=== PATIENT | female | born 1995 | race Caucasian/White ===

== ENCOUNTER 2024-02-05 13:41 | Observation (INO) | payer OTHER ==
[2024-02-05] MEDS ORDERED: LORazepam 2 MG/ML INJ IV PRN (14:16)
[2024-02-05] MEDS: ONDANSETRON 4 MG/2 ML VIAL IVP STA (15:07)
[2024-02-05] MEDS: LORazepam 2 MG/ML INJ IV STA (15:07)
[2024-02-05] MEDS: PANTOPRAZOLE 40 MG/10 ML VIAL IVP STA (15:07)
[2024-02-05] MEDS: SODIUM CHLORIDE 0.9% 1,000 ML IV STA (15:07)
[2024-02-05 15:41] LABS: Appearance,Urine Clear (Clear); Bilirubin,Urine Negative (Negative); Blood,Urine Negative (Negative); Color,Urine Light Yellow; Glucose,Urine (UA) Negative (Negative); Ketones,Urine Negative (Negative); Leukocyte Esterase,Urine Negative (Negative); Nitrite,Urine Negative (Negative); PH, Urine 6.5 (5.0-8.0); Protein,Urine Negative (Negative); Specific Gravity,Urine 1.007 (1.001-1.035); Urobilinogen,Urine <2.0 mg/dL (<2.0)
[2024-02-05 15:49] LABS: Basophils % (A) 1 %; Eosinophils % (A) 1 %; HCT 47.9 % (34.0-46.0); HGB 16.4 gm/dL (11.4-16.0); Lymphocytes # (A) 0.8 k/uL (1.0-4.8); Lymphocytes % (A) 33 %; MCH 30.4 pg (25.0-35.0); MCHC 34.2 g/dL (31.0-37.0); MCV 88.9 fL (80.0-100.0); Mean Platelet Volume 9.9; Monocytes # (A) 0.4 k/uL (0-1.0); Monocytes % (A) 16 %; Neutrophils # (A) 1.1 k/uL (1.3-7.7); Neutrophils % (A) 46 %; Platelet Count 110 k/uL (150-450); RBC 5.39 m/uL (3.80-5.40); RDW 13.7 % (11.5-15.5); WBC 2.4 k/uL (3.8-10.6)
[2024-02-05 15:50] LABS: Partial Thromboplastin Time 27.5 sec (22.0-30.0); Prothrombin Time 10.6 sec (10.0-12.5)
[2024-02-05] MEDS: guaiFENesin 600 MG TABLET.ER PO STA (16:01)
[2024-02-05] MEDS: THIAMINE 100 MG/ML 2 ML VIAL IM STA (16:01)
[2024-02-05 16:05] LABS: ALT 154 U/L (4-34); AST 207 U/L (14-36); African American GFR (CKD) >90 (>60 ml/min/1.73 sqM); Alcohol <10 mg/dL; Alkaline Phosphatase 93 U/L (38-126); Amylase 60 U/L (30-110); Anion Gap 9 mmol/L; Blood Urea Nitrogen 3 mg/dL (7-17); Calcium 8.8 mg/dL (8.4-10.2); Carbon Dioxide 24 mmol/L (22-30); Chloride 100 mmol/L (98-107); Glucose 88 mg/dL (74-99); Lipase 128 U/L (23-300); Non-African American GFR(CKD) >90 (>60 ml/min/1.73 sqM); Potassium 3.3 mmol/L (3.5-5.1); Sodium 133 mmol/L (137-145); Total Bilirubin 0.4 mg/dL (0.2-1.3); Total Protein 6.8 g/dL (6.3-8.2)
--- NOTE | 2024-02-05 16:45 | XR ---
EXAMINATION TYPE: XR chest 2V DATE OF EXAM: 02/05/2024 4:34 PM CLINICAL INDICATION:Female, 28 years old with history of abdominal pain; [facility] COMPARISON: None TECHNIQUE: XR chest 2V Frontal and lateral views of the chest. FINDINGS: Lungs/Pleura: There is no evidence of pleural effusion, focal consolidation, or pneumothorax. Pulmonary vascularity: Unremarkable. Heart/mediastinum: Cardiomediastinal silhouette is unremarkable. Musculoskeletal: No acute osseous pathology. Other findings: None IMPRESSION: No acute cardiopulmonary disease/process.
[2024-02-05] MEDS ORDERED: NALOXONE 0.4 MG/ML 1 ML VIAL IV PRN (17:49)
[2024-02-05] MEDS ORDERED: KETOROLAC 15 MG/ML 1 ML VIAL IVP PRN (17:49)
[2024-02-05] MEDS ORDERED: ACETAMINOPHEN TAB 325 MG TAB PO PRN (17:49)
--- NOTE | 2024-02-05 17:52 | ED ---
General Adult HPI - General Chief complaint: Alcohol Stated complaint: detox Time Seen by Provider: 02/05/24 14:10 Source: patient, RN notes reviewed, old records reviewed Mode of arrival: ambulatory Limitations: no limitations - History of Present Illness Initial comments: Patient is a 28-year-old female who presents emergency department after being se nt from [facility] for alcohol withdrawals. Typically drinks 2 pints a day. Stop drinking yesterday. Last known drink was at 5 PM on 02/04/2024. Endorses mild alcohol withdrawal symptoms as well as upper respiratory symptoms of cough, fevers, congestion. Also endorses some mild nausea and a slight headache. Patient states she also has a remote history of seizure disorder but does not take medications for it. [facility] is asking that she be evaluated for this as well. Presents for admission for detox. [facility] will not admit her for detox. - Related Data Home Medications Medication Instructions Recorded Confirmed No Known Home Medications 02/05/24 02/05/24 Allergies Allergy/AdvReac Type Severity Reaction Status Date / Time No Known Allergies Allergy Verified 02/05/24 15:15 Review of Systems ROS Statement: Those systems with pertinent positive or pertinent negative responses have been documented in the HPI. Review of Systems: CONST: Denies fever EYES: Denies blurry vision ENT: Endorses nasal congestion C/V: Denies Chest pain RESP: Denies shortness of breath GI: Denies abdominal pain : Denies dysuria SKIN: Denies rash. MSK: Denies joint pain. NEURO: Endorses headache. ROS Other: All systems not noted in ROS Statement are negative. Past Medical History Past Medical History: Seizure Disorder Past Surgical History: No Surgical Hx Reported Past Alcohol Use History: Abuse Past Drug Use History: Cocaine, Heroin General Exam - General Exam Comments Initial Comments: General: Appears anxious. HEAD: Normal with no signs of head trauma. EYES: PERRLA, EOMI, conjunctiva normal, no discharge. ENT: Hearing grossly intact, normal oropharynx. RESPIRATORY: Clear breath sounds bilaterally. No wheezes, rales, or rhonchi. No hypoxia. No increased work of breathing. C/V: Regular rate and rhythm. S1 and S2 auscultated, no edema, peripheral pulses 2+ and intact throughout ABD: Abd is soft, nontender, nondistended EXT: Normal range of motion, no obvious deformity SKIN: No rashes or lesions observed on exposed skin. NEURO: Alert and oriented x 4. No focal deficits. Mild tremors. Limitations: no limitations Course Vital Signs 02/05/24 02/05/24 02/05/24 13:43 16:07 18:47 Temperature 97.4 F L Pulse Rate 112 H 98 81 Respiratory 20 18 16 Rate Blood Pressure 136/99 117/78 115/80 O2 Sat by Pulse 96 98 98 Oximetry Medical Decision Making - Medical Decision Making Was pt. sent in by a medical professional or institution (, PA, PLC ENGINEER, urgent care, hospital, or correction...) When possible be specific @ -Sent from [facility] for detox. Did not check in as a patient there but was sent here after trying to check in. Did you speak to anyone other than the patient for history (EMS, parent, family, police, friend...)? What history was obtained from this source @ -No Did you review nursing and triage notes (agree or disagree)? Why? @ -I reviewed and agree with nursing and triage notes Were old charts reviewed (outside hosp., previous admission, EMS record, old EKG, old radiological studies, urgent care reports/EKG's, correction records)? Report findings @ -No old charts were reviewed Differential Diagnosis (chest pain, altered mental status, abdominal pain women, abdominal pain men, vaginal bleeding, weakness, fever, dyspnea, syncope, headache, dizziness, GI bleed, back pain, seizure, CVA, palpatations, mental health, musculoskeletal)? @ -Alcohol withdrawals, dehydration, pneumonia, COVID, influenza. This list is not all inclusive. EKG interpreted by me (3pts min.). @ -As above X-rays interpreted by me (1pt min.). @ -Chest x-ray reveals no obvious acute cardiopulmonary process. CT interpreted by me (1pt min.). @ -None done U/S interpreted by me (1pt. min.). @ -None done What testing was considered but not performed or refused? (CT, X-rays, U/S, labs)? Why? @ -None What meds were considered but not given or refused? Why? @ -None Did you discuss the management of the patient with other professionals (professionals i.e. , MARCELA, PLC ENGINEER, lab, RT, psych nurse, rn social services, windows phone developer, teacher, founder chairman and chief creative officer, egg caser)? Give summary @ - I spoke with the admitting team, HERIBERTO Freitas of [facility] who accepted the admission. Patient admitted on CIWA protocol. Was smoking cessation discussed for >3mins.? @ -No Was critical care preformed (if so, how long)? @ -No Were there social determinants of health that impacted care today? How? (Homelessness, low income, unemployed, alcoholism, drug addiction, transportation, low edu. Level, literacy, decrease access to med. care, senior living, rehab)? @ -No Was there de-escalation of care discussed even if they declined (Discuss DNR or withdrawal of care, Hospice)? DNR status @ -No What co-morbidities impacted this encounter? (DM, HTN, Smoking, COPD, CAD, Cancer, CVA, ARF, Chemo, Hep., AIDS, mental health diagnosis, sleep apnea, morbid obesity)? @ -History of alcohol abuse Was patient admitted / discharged? Hospital course, mention meds given and route, prescriptions, significant lab abnormalities, going to OR and other pertinent info. @ -Based on patient's presentation and physical exam, appears to have mild alcohol withdrawals at this time with CIWA ranging from 8-10 on presentation. Also has upper respiratory symptoms. We will obtain general labs, screening EKG and chest x-ray. Patient will be tested for influenza and COVID. Patient was in agreement this plan. She will be symptomatically treated with IV Ativan as well as IV fluids and cough medication. Vital signs are within acceptable limits. EKG shows no signs of acute ischemia. Patient's laboratory studies are remarkable for mild hypokalemia of 3.3 likely related to her chronic alcohol abuse as well as slightly elevated liver function test likely related to her chronic alcohol abuse. Patient is flu positive. Alcohol is undetectable. On reevaluation, her alcohol withdrawals appear to be under control. Low CIWA at this time however I did recommend admission as she does have a history of withdrawals as well as seizures from withdrawals per patient. She was in agreement this plan. I spoke with the admitting team, HERIBERTO Freitas of [facility] who accepted the admission. Patient admitted on CIWA protocol. Undiagnosed new problem with uncertain prognosis? @ -No Drug Therapy requiring intensive monitoring for toxicity (Heparin, Nitro, Insulin, Cardizem)? @ -No Were any procedures done? @ -No Diagnosis/symptom? @ -Alcohol withdrawal, influenza infection Acute, or Chronic, or Acute on Chronic? @ -Acute Uncomplicated (without systemic symptoms) or Complicated (systemic symptoms)? @ -Complicated Side effects of treatment? @ -No Exacerbation, Progression, or Severe Exacerbation? @ -No Poses a threat to life or bodily function? How? (Chest pain, USA, AR, pneumonia, PE, COPD, DKA, ARF, appy, cholecystitis, CVA, Diverticulitis, Homicidal, Suicidal, threat to staff... and all critical care pts) @ -Yes - Lab Data Result diagrams: 02/05/24 14:52 02/05/24 14:52 Lab Results 02/05/24 02/05/24 02/05/24 Range/Units 14:52 14:52 14:52 WBC 2.4 L (3.8-10.6) k/uL RBC 5.39 (3.80-5.40) m/uL Hgb 16.4 H (11.4-16.0) gm/dL Hct 47.9 H (34.0-46.0) % MCV 88.9 (80.0-100.0) fL MCH 30.4 (25.0-35.0) pg MCHC 34.2 (31.0-37.0) g/dL RDW 13.7 (11.5-15.5) % Plt Count 110 L (150-450) k/uL MPV 9.9 Neutrophils % 46 % Lymphocytes % 33 % Monocytes % 16 % Eosinophils % 1 % Basophils % 1 % Neutrophils # 1.1 L (1.3-7.7) k/uL Lymphocytes # 0.8 L (1.0-4.8) k/uL Monocytes # 0.4 (0-1.0) k/uL Eosinophils # 0.0 (0-0.7) k/uL Basophils # 0.0 (0-0.2) k/uL PT 10.6 (10.0-12.5) sec INR 1.0 (<1.2) APTT 27.5 (22.0-30.0) sec Sodium (137-145) mmol/L Potassium (3.5-5.1) mmol/L Chloride (98-107) mmol/L Carbon Dioxide (22-30) mmol/L Anion Gap mmol/L BUN (7-17) mg/dL Creatinine (0.52-1.04) mg/dL Est GFR (CKD-EPI)AfAm (>60 ml/min/1.73 sqM) Est GFR (CKD-EPI)NonAf (>60 ml/min/1.73 sqM) Glucose (74-99) mg/dL Calcium (8.4-10.2) mg/dL Total Bilirubin (0.2-1.3) mg/dL AST (14-36) U/L ALT (4-34) U/L Alkaline Phosphatase (38-126) U/L Total Protein (6.3-8.2) g/dL Albumin (3.5-5.0) g/dL Amylase (30-110) U/L Lipase (23-300) U/L Urine Color Light Yellow Urine Appearance Clear (Clear) Urine pH 6.5 (5.0-8.0) Ur Specific [place] 1.007 (1.001-1.035) Urine Protein Negative (Negative) Urine Glucose (UA) Negative (Negative) Urine Ketones Negative (Negative) Urine Blood Negative (Negative) Urine Nitrite Negative (Negative) Urine Bilirubin Negative (Negative) Urine Urobilinogen <2.0 (<2.0) mg/dL Ur Leukocyte Esterase Negative (Negative) Serum Alcohol mg/dL Influenza Type A (PCR) (Not Detectd) Influenza Type B (PCR) (Not Detectd) RSV (PCR) (Not Detectd) SARS-CoV-2 (PCR) (Not Detectd) 02/05/24 02/05/24 Range/Units 14:52 14:52 WBC (3.8-10.6) k/uL RBC (3.80-5.40) m/uL Hgb (11.4-16.0) gm/dL Hct (34.0-46.0) % MCV (80.0-100.0) fL MCH (25.0-35.0) pg MCHC (31.0-37.0) g/dL RDW (11.5-15.5) % Plt Count (150-450) k/uL MPV Neutrophils % % Lymphocytes % % Monocytes % % Eosinophils % % Basophils % % Neutrophils # (1.3-7.7) k/uL Lymphocytes # (1.0-4.8) k/uL Monocytes # (0-1.0) k/uL Eosinophils # (0-0.7) k/uL Basophils # (0-0.2) k/uL PT (10.0-12.5) sec INR (<1.2) APTT (22.0-30.0) sec Sodium 133 L (137-145) mmol/L Potassium 3.3 L (3.5-5.1) mmol/L Chloride 100 (98-107) mmol/L Carbon Dioxide 24 (22-30) mmol/L Anion Gap 9 mmol/L BUN 3 L (7-17) mg/dL Creatinine 0.57 (0.52-1.04) mg/dL Est GFR (CKD-EPI)AfAm >90 (>60 ml/min/1.73 sqM) Est GFR (CKD-EPI)NonAf >90 (>60 ml/min/1.73 sqM) Glucose 88 (74-99) mg/dL Calcium 8.8 (8.4-10.2) mg/dL Total Bilirubin 0.4 (0.2-1.3) mg/dL AST 207 H (14-36) U/L ALT 154 H (4-34) U/L Alkaline Phosphatase 93 (38-126) U/L Total Protein 6.8 (6.3-8.2) g/dL Albumin 4.0 (3.5-5.0) g/dL Amylase 60 (30-110) U/L Lipase 128 (23-300) U/L Urine Color Urine Appearance (Clear) Urine pH (5.0-8.0) Ur Specific [place] (1.001-1.035) Urine Protein (Negative) Urine Glucose (UA) (Negative) Urine Ketones (Negative) Urine Blood (Negative) Urine Nitrite (Negative) Urine Bilirubin (Negative) Urine Urobilinogen (<2.0) mg/dL Ur Leukocyte Esterase (Negative) Serum Alcohol <10 mg/dL Influenza Type A (PCR) Detected A (Not Detectd) Influenza Type B (PCR) Not Detected (Not Detectd) RSV (PCR) Not Detected (Not Detectd) SARS-CoV-2 (PCR) Not Detected (Not Detectd) - EKG Data -: EKG Interpreted by Me EKG Comments: 12-lead Electrocardiogram Interpretation Note EKG was reviewed and interpreted by myself. 12-lead ECG performed at 1804 is interpreted by me as revealing normal sinus rhythm at a rate of 84 beats per minute. [place] is normal. [place] interval is 143 ms, QRS duration 79 ms, QTc is 401 ms.. There were no ST or T wave abnormalities to suggest myocardial ischemia or injury. R wave progression across the precordium was satisfactory. By my interpretation this EKG is non-diagnostic for acute ischemia. Disposition Clinical Impression: Alcohol withdrawal, Influenza Disposition: ADMITTED IP TO THIS HOSP Condition: Stable Time of Disposition: 17:41
[2024-02-05] MEDS: POTASSIUM CHLORIDE ER 20 MEQ TAB.ER PO STA (19:49)
[2024-02-05] MEDS: SODIUM CHLORIDE 0.9% 1,000 ML IV SCH (19:50)
[2024-02-05] MEDS: diphenhydrAMINE 25 MG CAP PO PRN (21:09)
[2024-02-05] MEDS: NICOTINE 21MG/24HR PATCH TRANSDERM SCH (21:53)
[2024-02-05] MEDS: LORazepam 2 MG/ML INJ IV PRN (21:53)
[2024-02-05] MEDS: HEPARIN SODIUM,PORCINE 5,000 UNIT/ML 1 ML VIAL SQ SCH (21:57)
[2024-02-06 09:11] LABS: BUN/Creat Ratio 8.67 Ratio (12.00-20.00); Blood Urea Nitrogen 5.2 mg/dL (9.0-27.0); Calcium 8.5 mg/dL (8.7-10.3); Carbon Dioxide 22.9 mmol/L (21.6-31.8); Chloride 107 mmol/L (96-109); Glucose 86 mg/dL (70-110); Potassium 3.4 mmol/L (3.5-5.5); Sodium 139 mmol/L (135-145)
[2024-02-06] MEDS: THIAMINE 100 MG TAB PO SCH (09:25)
[2024-02-06 09:35] LABS: Basophils # (M) 0 X 10*3/uL (0.00-0.10); HCT 42.6 % (37.2-46.3); HGB 14.4 g/dL (12.0-15.0); Lymphocytes # (M) 1.27 X 10*3/uL (0.90-5.00); MCH 30.6 pg (27.0-32.0); MCHC 33.8 g/dL (32.0-37.0); MCV 90.6 FL (80.0-97.0); Mean Platelet Volume 12.4 FL (9.5-12.2); NRBC Per 100 WBC 0 X 10*3/uL (0.00-0.01); Platelet Count 96 X 10*3/uL (140-440); RDW 13.6 % (11.5-14.5); WBC 2.27 X 10*3/uL (4.50-10.00)
[2024-02-06 09:37] LABS: Eosinophils # (M) 0.05 X 10*3/uL (0.04-0.35); Monocytes # (M) 0.43 X 10*3/uL (0.20-1.00); Neutrophils # (M) 0.52 X 10*3/uL (1.80-7.70); Neutrophils % (M) 23 %; RBC Morphology Normal (Normal)
[2024-02-06] MEDS: ONDANSETRON 4 MG/2 ML VIAL IVP PRN (09:38)
[2024-02-06] MEDS: POTASSIUM CHLORIDE ER 20 MEQ TAB.ER PO STA (12:58)
[2024-02-06] MEDS: LORazepam 2 MG/ML INJ IV PRN (16:29)
--- NOTE | 2024-02-07 00:57 | P.HPIM ---
History of Present Illness H&P Date: 02/06/24 Chief Complaint: Alcohol withdrawal symptoms Patient is a 28-year-old female with known history of alcohol abuse, cocaine and heroin use, bipolar/PTSD and currently admitted a smoker was sent from [place] due to alcohol withdrawal symptoms. Patient usually drinks 2 pints a day and stopped drinking since 02/04/2024. Patient is currently at rehab. She was started having alcohol withdrawal symptoms and also having upper respiratory symptoms of cough and congestion and subjective fevers. She was sent to ER for further evaluation. On admission patient was tachycardic and blood pressure 136/9010 respirations 20 and pulse ox 96% on room air. Patient is also tested positive for influenza. States that she has been having upper respiratory symptoms for the past 5 days. No complaints of chest pain or shortness of breath. No leg swelling. Did have nausea. No diarrhea. Chest x-ray showed no acute cardiopulmonary process. EKG showed sinus rhythm Laboratory data showed WBC 2.4 hemoglobin 16.4 and platelets 110 Sodium 133 potassium 3.3, chloride 100 bicarb is 24 BUN 3 and creatinine 0.57 AST 207 and alk phos 93 ALT 154 lipase 128 Urinalysis is negative for infection Influenza A detected. Review of Systems Constitutional: Patient denies any fever or chills . No generalized weakness or weight loss. Abdomen: Patient did have nausea. No vomiting currently. No diarrhea or abdominal pain. No constipation. Cardiovascular: Patient denies any chest pain or short of breath no palpitations. Respiratory: patient did complain of cough and congestion. No shortness of breath Neurologic: Patient denied any numbness or tingling headache. Musculoskeletal: Patient denies any complaints of joint swelling or deformity. Skin: Negative Psychiatric: Negative Endocrine: No heat or cold intolerance. No recent weight gain. Genitourinary: No dysuria or hematuria. All other 14 point ROS negative except the above Past Medical History Past Medical History: Seizure Disorder Additional Past Medical History / Comment(s): "spot on brain" History of Any Multi-Drug Resistant Organisms: None Reported Past Surgical History: No Surgical Hx Reported Past Psychological History: Bipolar, PTSD Additional Psychological History / Comment(s): BPD Smoking Status: Current every day smoker Past Alcohol Use History: Abuse Past Drug Use History: Cocaine, Heroin Additional Drug Use History / Comment(s): pt states 6 years clean of heroin and cocaine. Medications and Allergies Home Medications Medication Instructions Recorded Confirmed Type No Known Home Medications 02/05/24 02/05/24 History Allergies Allergy/AdvReac Type Severity Reaction Status Date / Time No Known Allergies Allergy Verified 02/05/24 15:15 Physical Exam Vitals: Vital Signs Temp Pulse Pulse Resp BP BP Pulse Ox 02/06/24 07:00 98 F 85 17 104/69 99 02/06/24 02:07 98.8 F 68 15 127/73 96 02/05/24 21:21 97.9 F 85 15 115/84 98 02/05/24 19:59 89 16 115/69 97 02/05/24 18:47 81 16 115/80 98 02/05/24 16:07 98 18 117/78 98 02/05/24 13:43 97.4 F L 112 H 20 136/99 96 Intake and Output 02/05/24 02/06/24 02/06/24 22:59 06:59 14:59 Output Total 1 Balance -1 Output: Urine 1 Other: Voiding Method Toilet # Voids 3 Weight 69.853 kg PHYSICAL EXAMINATION: Patient is lying in the bed comfortably, no acute distress, awake alert and oriented. Anxious and shaky. HEENT: Normocephalic. Neck is supple. Pupils reactive. Nostrils clear. Oral cavity is moist. Neck reveals no JVD, carotid bruits, or thyromegaly. CHEST EXAMINATION: Trachea is central. Symmetrical expansion. Lung jefferson clear to auscultation and percussion. CARDIAC: Normal S1, S2 with no gallops. No murmurs ABDOMEN: Soft. Bowel sounds normal. No organomegaly. No abdominal bruits. Extremities: reveal no edema. No clubbing or cyanosis Neurologically awake, alert, oriented x3 with well-coordinated movements. No focal deficits noted Skin: No rash or skin lesions. Psychiatric: Coperative. Nonsuicidal, anxious. Musculoskeletal: No joint swelling or deformity. Normal range of motion. Results CBC & Chem 7: 02/06/24 05:37 02/06/24 05:37 Labs: Abnormal Lab Results - Last 24 Hours (Table) 02/05/24 02/05/24 02/05/24 Range/Units 14:52 14:52 14:52 WBC 2.4 L (3.8-10.6) k/uL Hgb 16.4 H (11.4-16.0) gm/dL Hct 47.9 H (34.0-46.0) % Plt Count 110 L (150-450) k/uL MPV (9.5-12.2) [place] Neutrophils # 1.1 L (1.3-7.7) k/uL Lymphocytes # 0.8 L (1.0-4.8) k/uL Sodium 133 L (137-145) mmol/L Potassium 3.3 L (3.5-5.1) mmol/L BUN 3 L (7-17) mg/dL BUN/Creatinine Ratio (12.00-20.00) Ratio Calcium (8.7-10.3) mg/dL AST 207 H (14-36) U/L ALT 154 H (4-34) U/L Influenza Type A (PCR) Detected A (Not Detectd) 02/06/24 02/06/24 Range/Units 05:37 05:37 WBC 2.27 L (3.8-10.6) k/uL Hgb (11.4-16.0) gm/dL Hct (34.0-46.0) % Plt Count 96 L (150-450) k/uL MPV 12.4 H (9.5-12.2) FL Neutrophils # (1.3-7.7) k/uL Lymphocytes # (1.0-4.8) k/uL Sodium (137-145) mmol/L Potassium 3.4 L (3.5-5.1) mmol/L BUN 5.2 L (7-17) mg/dL BUN/Creatinine Ratio 8.67 L (12.00-20.00) Ratio Calcium 8.5 L (8.7-10.3) mg/dL AST (14-36) U/L ALT (4-34) U/L Influenza Type A (PCR) (Not Detectd) Thrombosis Risk Factor Assmnt - DVT/VTE Prophylaxis DVT/VTE Prophylaxis: Pharmacologic Prophylaxis ordered Assessment and Plan Assessment: Acute alcohol withdrawal symptoms Acute influenza A infection Severe alcohol abuse Hypokalemia replacing Transaminitis secondary to alcoholic hepatitis Neutropenia and thrombocytopenia likely due to infection and alcohol use Remote history of seizures GI and DVT prophylaxis Plan: Patient will be continued on gentle IV hydration with normal saline. Patient is not hypoxic currently. Continue with alcohol withdrawal protocol and Librium was added. Continue with GI and DVT prophylaxis. Follow-up closely. Smoking cessation and alcohol abstinence has been counseled extensively. Time with Patient: Greater than 30
[2024-02-07 08:21] LABS: Basophils % (A) 1 %; Eosinophils % (A) 1 %; HCT 45.2 % (34.0-46.0); HGB 14.6 gm/dL (11.4-16.0); Lymphocytes # (A) 1.3 k/uL (1.0-4.8); Lymphocytes % (A) 48 %; MCH 30.8 pg (25.0-35.0); MCHC 32.3 g/dL (31.0-37.0); Mean Platelet Volume 10.1; Monocytes # (A) 0.3 k/uL (0-1.0); Monocytes % (A) 12 %; Neutrophils # (A) 0.9 k/uL (1.3-7.7); Neutrophils % (A) 34 %; RBC 4.75 m/uL (3.80-5.40); RDW 14.1 % (11.5-15.5); WBC 2.7 k/uL (3.8-10.6)
[2024-02-07 09:14] LABS: Platelet Count 79 k/uL (150-450)
[2024-02-07] MEDS: MULTIVITAMINS, THERA 1 EACH TAB PO SCH (10:14)
[2024-02-07] MEDS: FAMOTIDINE 20 MG TAB PO SCH (10:14)
[2024-02-07 10:48] LABS: ALT 101 U/L (8-44); AST 68 U/L (13-35); Albumin 3.5 g/dL (3.8-4.9); Albumin/Globulin Ratio 1.52 Ratio (1.60-3.17); Alkaline Phosphatase 70 U/L (41-126); Blood Urea Nitrogen 5.7 mg/dL (9.0-27.0); Calcium 8.4 mg/dL (8.7-10.3); Chloride 108 mmol/L (96-109); Globulin 2.3 g/dL (1.6-3.3); Glucose 79 mg/dL (70-110); Potassium 3.9 mmol/L (3.5-5.5); Sodium 139 mmol/L (135-145); Total Bilirubin <0.2 mg/dL (0.3-1.2); Total Protein 5.8 g/dL (6.2-8.2)
[2024-02-07 14:20] LABS: MCV 95.2 fL (80.0-100.0)
[2024-02-07] MEDS: OSELTAMIVIR 75 MG CAP PO SCH (16:43)
--- NOTE | 2024-02-07 18:44 | P.PN ---
Subjective Progress Note Date: 02/07/24 28-year-old female with known history of alcohol abuse, cocaine and heroin use, bipolar/PTSD and currently admitted a smoker was sent from [place] due to alcohol withdrawal symptoms. Patient usually drinks 2 pints a day and stopped drinking since 02/04/2024. Patient is currently at rehab. She was started having alcohol withdrawal symptoms and also having upper respiratory symptoms of cough and congestion and subjective fevers. She was sent to ER for further evaluation. On admission patient was tachycardic and blood pressure 136/9010 respirations 20 and pulse ox 96% on room air. Patient is also tested positive for influenza. States that she has been having upper respiratory symptoms for the past 5 days. No complaints of chest pain or shortness of breath. No leg swelling. Did have nausea. No diarrhea. Chest x-ray showed no acute cardiopulmonary process. EKG showed sinus rhythm Laboratory data showed WBC 2.4 hemoglobin 16.4 and platelets 110 Sodium 133 potassium 3.3, chloride 100 bicarb is 24 BUN 3 and creatinine 0.57 AST 207 and alk phos 93 ALT 154 lipase 128 Urinalysis is negative for infection Influenza A detected. Objective - Vital Signs Vital signs: Vital Signs Temp 98.9 F 02/07/24 07:00 Pulse 65 02/07/24 07:00 Resp 16 02/07/24 07:00 BP 103/69 02/07/24 07:00 Pulse Ox 97 02/07/24 07:00 FiO2 Intake & Output 02/06/24 02/07/24 02/07/24 18:59 06:59 18:59 Intake Total 358 Balance 358 Intake: Oral 358 Other: Voiding Method Toilet # Voids 4 3 # Bowel Movements 2 - Exam Patient is lying in the bed comfortably, no acute distress, awake alert and oriented. Anxious and shaky. HEENT: Normocephalic. Neck is supple. Pupils reactive. Nostrils clear. Oral cavity is moist. Neck reveals no JVD, carotid bruits, or thyromegaly. CHEST EXAMINATION: Trachea is central. Symmetrical expansion. Lung jefferson clear to auscultation and percussion. CARDIAC: Normal S1, S2 with no gallops. No murmurs ABDOMEN: Soft. Bowel sounds normal. No organomegaly. No abdominal bruits. Extremities: reveal no edema. No clubbing or cyanosis Neurologically awake, alert, oriented x3 with well-coordinated movements. No focal deficits noted Skin: No rash or skin lesions. Psychiatric: Coperative. Nonsuicidal, anxious. Musculoskeletal: No joint swelling or deformity. Normal range of motion. - Labs CBC & Chem 7: 02/07/24 05:53 02/07/24 05:53 Labs: Abnormal Lab Results - Last 24 Hours (Table) 02/06/24 02/07/24 02/07/24 Range/Units 05:37 05:53 05:53 WBC 2.7 L (3.8-10.6) k/uL Plt Count 79 L (150-450) k/uL Neutrophils # 0.9 L (1.3-7.7) k/uL Neutrophils # (Manual) 0.52 L (1.80-7.70) X 10*3/uL Carbon Dioxide 21.0 L (21.6-31.8) mmol/L BUN 5.7 L (9.0-27.0) mg/dL Creatinine 0.5 L (0.6-1.5) mg/dL BUN/Creatinine Ratio 11.40 L (12.00-20.00) Ratio Calcium 8.4 L (8.7-10.3) mg/dL Total Bilirubin <0.2 L (0.3-1.2) mg/dL AST 68 H (13-35) U/L ALT 101 H (8-44) U/L Total Protein 5.8 L (6.2-8.2) g/dL Albumin 3.5 L (3.8-4.9) g/dL Albumin/Globulin Ratio 1.52 L (1.60-3.17) Ratio Assessment and Plan Assessment: Acute alcohol withdrawal symptoms Acute influenza A infection Severe alcohol abuse Hypokalemia replacing Transaminitis secondary to alcoholic hepatitis Neutropenia and thrombocytopenia likely due to infection and alcohol use Remote history of seizures GI and DVT prophylaxis Plan: Patient will be continued on gentle IV hydration with normal saline. Patient is not hypoxic currently. Continue with alcohol withdrawal protocol and Librium was added. Continue with GI and DVT prophylaxis. Follow-up closely. Smoking cessation and alcohol abstinence has been counseled extensively.
--- NOTE | 2024-02-08 16:08 | P.PN ---
Subjective Progress Note Date: 02/08/24 28-year-old female with known history of alcohol abuse, cocaine and heroin use, bipolar/PTSD and currently admitted a smoker was sent from [place] due to alcohol withdrawal symptoms. Patient usually drinks 2 pints a day and stopped drinking since 02/04/2024. Patient is currently at rehab. She was started having alcohol withdrawal symptoms and also having upper respiratory symptoms of cough and congestion and subjective fevers. She was sent to ER for further evaluation. On admission patient was tachycardic and blood pressure 136/9010 respirations 20 and pulse ox 96% on room air. Patient is also tested positive for influenza. States that she has been having upper respiratory symptoms for the past 5 days. No complaints of chest pain or shortness of breath. No leg swelling. Did have nausea. No diarrhea. Chest x-ray showed no acute cardiopulmonary process. EKG showed sinus rhythm Laboratory data showed WBC 2.4 hemoglobin 16.4 and platelets 110 Sodium 133 potassium 3.3, chloride 100 bicarb is 24 BUN 3 and creatinine 0.57 AST 207 and alk phos 93 ALT 154 lipase 128 Urinalysis is negative for infection Influenza A detected. 02/08/2024 Patient is seen and evaluated in room at bedside; sitting up in bed; reports feeling calmer Vital signs reviewed and remained stable Labs reviewed from 02/07/2024 --Patient remains on Ativan per [facility] protocol Objective - Vital Signs Vital signs: Vital Signs Temp 98 F 02/08/24 07:00 Pulse 60 02/08/24 07:00 Resp 18 02/08/24 09:37 BP 99/69 02/08/24 07:00 Pulse Ox 97 02/08/24 07:00 FiO2 Intake & Output 02/07/24 02/08/24 02/08/24 18:59 06:59 18:59 Intake Total 120 Balance 120 Intake: Oral 120 Other: Voiding Method Toilet Toilet # Voids 4 1 - Exam Patient is lying in the bed comfortably, no acute distress, awake alert and oriented. Anxious and shaky. HEENT: Normocephalic. Neck is supple. Pupils reactive. Nostrils clear. Oral cavity is moist. Neck reveals no JVD, carotid bruits, or thyromegaly. CHEST EXAMINATION: Trachea is central. Symmetrical expansion. Lung jefferson clear to auscultation and percussion. CARDIAC: Normal S1, S2 with no gallops. No murmurs ABDOMEN: Soft. Bowel sounds normal. No organomegaly. No abdominal bruits. Extremities: reveal no edema. No clubbing or cyanosis Neurologically awake, alert, oriented x3 with well-coordinated movements. No focal deficits noted Skin: No rash or skin lesions. Psychiatric: Coperative. Nonsuicidal, anxious. Musculoskeletal: No joint swelling or deformity. Normal range of motion. - Labs CBC & Chem 7: 02/07/24 05:53 02/07/24 05:53 Labs: Abnormal Lab Results - Last 24 Hours (Table) 02/07/24 Range/Units 05:53 Carbon Dioxide 21.0 L (21.6-31.8) mmol/L BUN 5.7 L (9.0-27.0) mg/dL Creatinine 0.5 L (0.6-1.5) mg/dL BUN/Creatinine Ratio 11.40 L (12.00-20.00) Ratio Calcium 8.4 L (8.7-10.3) mg/dL Total Bilirubin <0.2 L (0.3-1.2) mg/dL AST 68 H (13-35) U/L ALT 101 H (8-44) U/L Total Protein 5.8 L (6.2-8.2) g/dL Albumin 3.5 L (3.8-4.9) g/dL Albumin/Globulin Ratio 1.52 L (1.60-3.17) Ratio Assessment and Plan Assessment: Acute alcohol withdrawal symptoms Acute influenza A infection Severe alcohol abuse Hypokalemia replacing Transaminitis secondary to alcoholic hepatitis Neutropenia and thrombocytopenia likely due to infection and alcohol use Remote history of seizures GI and DVT prophylaxis Plan: Patient will be continued on gentle IV hydration with normal saline. Patient is not hypoxic currently. Continue with alcohol withdrawal protocol and Librium was added. Continue with GI and DVT prophylaxis. Follow-up closely. Smoking cessation and alcohol abstinence has been counseled extensively.
[2024-02-09 02:51] VITALS: PULSE 78
[2024-02-09 08:57] VITALS: BP 98/63; RESP 18; TEMP 97.9
== END 2024-02-09 13:35 | disposition home or self-care (01) ==
LOC: EC 13:41 → 6NMEDSUR 17:50
PROVIDERS: ADMIT Hospitalist; ATTEND Hospitalist
DX: F10.239 Alcohol dependence with withdrawal, unspecified (principal); J10.1 Influenza due to other identified influenza virus with other respiratory manifestations; E87.6 Hypokalemia; K70.10 Alcoholic hepatitis without ascites; D70.9 Neutropenia, unspecified; D69.6 Thrombocytopenia, unspecified; F31.9 Bipolar disorder, unspecified; F17.200 Nicotine dependence, unspecified, uncomplicated; Y90.0 Blood alcohol level of less than 20 mg/100 ml; Z11.52 Encounter for screening for COVID-19
CPT/HCPCS: 96376 ×4; 96361 ×3; 96372 ×2; 82075; 96374; 96375; 99285; 36415; 80053 ×2; 80048; 82150; 83690; 85025 ×3; 85610; 85730; 81003; 87636; 71046; G0378 ×5; G0480; S4990 ×5; J2060 ×3; J1644; J3411; J2405 ×4; C9113; 80320; 93005